=== PATIENT | male | born 1980 ===

== ENCOUNTER 2020-04-04 00:42 | Emergency (ER) | payer BC, OTHER ==
[2020-04-04] MEDS ORDERED: Cyclobenzaprine 10 MG Tab PO ONE (00:43)
--- NOTE | 2020-04-04 01:54 | EDM.PDOC ---
ED HPI GENERAL MEDICAL PROBLEM - General Chief Complaint: Back Pain or Injury Stated Complaint: SCIATICA Time Seen by Provider: 04/04/20 01:54 Source of Information: Reports: Patient, RN, RN Notes Reviewed History Limitations: Reports: No Limitations - History of Present Illness INITIAL COMMENTS - FREE TEXT/NARRATIVE: Patient presents to ER with complaint of sciatica pain. States his low back hurts and he gets some numbness in the buttocks. Patient states the pain shoots down the legs, alternating from time to time. Denies any saddle anesthesia, incontinence of bowel or bladder. Patient denies any new injury. States this began about 6 years ago and comes and goes. Patient states this flareup began 2 days ago. Has used ibuprofen at home yesterday, and CBD oil which he does not feel worked. Onset: Gradual Lower Back Pain Score (Numeric/FACES): 5 - Related Data Allergies Allergy/AdvReac Type Severity Reaction Status Date / Time No Known Allergies Allergy Verified 04/04/20 01:43 Home Meds: Home Meds . [No Known Home Meds] 08/23/13 [History] Past Medical History Neurological History: Reports: Other (See Below) Other Neuro History: sciatica Social & Family History - Tobacco Use Smoking Status *Q: Current Every Day Smoker Years of Tobacco use: 20 Packs/Tins Daily: 1 - Caffeine Use Caffeine Use: Reports: Soda - Recreational Drug Use Recreational Drug Use: No ED ROS GENERAL - Review of Systems Review Of Systems: Comprehensive ROS is negative, except as noted in HPI. ED EXAM,LOWER BACK PAIN/INJURY - Physical Exam Exam: See Below Exam Limited By: No Limitations General Appearance: Alert, WD/WN Eye Exam: Bilateral Eye: EOMI, Normal Inspection Ears: Normal External Exam, Hearing Grossly Normal Nose: Normal Inspection Throat/Mouth: Normal Inspection, Normal Voice, No Airway Compromise Head: Atraumatic, Normocephalic Neck: Normal Inspection, Supple, Non-Tender, Full Range of Motion Respiratory/Chest: No Respiratory Distress, Lungs Clear, Normal Breath Sounds, No Accessory Muscle Use, Chest Non-Tender Cardiovascular: Normal Peripheral Pulses, Regular Rate, Rhythm, No Edema, No Gallop, No JVD, No Murmur, No Rub GI/Abdominal: Normal Bowel Sounds, Soft, Non-Tender (Male) Exam: Deferred Rectal (Males) Exam: Deferred Back Exam: Normal Inspection, Decreased Range of Motion, Muscle Spasm Extremities: Normal Inspection, Non-Tender, No Pedal Edema, Normal Capillary Refill, Limited Range of Motion (legs) Neurological: Alert, Normal Mood/Affect, Normal Dorsiflexion, CN II-XII Intact, Normal Plantar Flexion, Normal Gait, Normal Reflexes, No Motor/Sensory Deficits, Oriented x 3 Psychiatric: Normal Mood, Flat Affect Skin Exam: Warm, Dry, Intact, Normal Color, No Rash Lymphatic: No Adenopathy Course - Vital Signs Last Recorded V/S: Last Vital Signs Temp 98.8 F 04/04/20 01:44 Pulse 93 04/04/20 01:44 Resp 16 04/04/20 01:44 BP 154/90 H 04/04/20 01:44 Pulse Ox 96 04/04/20 01:44 - Orders/Labs/Meds Meds: Medications Discontinued Medications Generic Name Dose Route Start Last Admin Trade Name Freq PRN Reason Stop Dose Admin Cyclobenzaprine HCl Confirm 04/04/20 02:41 Flexeril Administered 04/04/20 02:42 Dose 10 mg .ROUTE .STK-MED ONE Dexamethasone 8 mg 04/04/20 02:04 04/04/20 02:12 Dexamethasone IM 04/04/20 02:05 8 mg ONETIME ONE Administration Ketorolac Tromethamine 30 mg 04/04/20 02:04 04/04/20 02:12 Toradol IM 04/04/20 02:05 30 mg ONETIME ONE Administration Departure - Departure Time of Disposition: 02:44 Disposition: Home, Self-Care 01 Condition: Fair Clinical Impression: Sciatica Qualifiers: Laterality: bilateral Qualified Code(s): M54.31 - Sciatica, right side - Discharge Information *PRESCRIPTION DRUG MONITORING PROGRAM REVIEWED*: No *COPY OF PRESCRIPTION DRUG MONITORING REPORT IN PATIENT BALAJI: No Instructions: Back Injury Prevention, [id number], Sciatica, [id number], Chronic Back Pain, [id number] Forms: ED Department Discharge Additional Instructions: Low up with your primary care provider in the clinic next week Call and make an appointment for physical therapy Rx: Cyclobenzaprine do not drive while taking this medication Continue to use ibuprofen as directed for pain May use ice to the area as tolerated Alternate heat with ice Sepsis Event Note (ED) - Evaluation Sepsis Screening Result: No Definite Risk - Focused Exam Vital Signs: Vital Signs Temp Pulse Resp BP Pulse Ox 04/04/20 01:44 98.8 F 93 16 154/90 H 96
[2020-04-04] MEDS ORDERED: Dexamethasone 4 MG/ML SDV IM ONE (02:04)
[2020-04-04] MEDS ORDERED: Ketorolac 30 MG/ML SDV IM ONE (02:04)
[2020-04-04] MEDS ORDERED: Cyclobenzaprine 10 MG Tab ONE (02:41)
== END 2020-04-04 02:46 | disposition home or self-care (01) ==
LOC: DL.ED 00:42
DX: M54.41 Lumbago with sciatica, right side (principal); M54.42 Lumbago with sciatica, left side; F17.210 Nicotine dependence, cigarettes, uncomplicated
CPT/HCPCS: 99283; A9270; J1100; J1885; 96372